=== PATIENT | male | born 1985 | race Caucasian/White ===

== ENCOUNTER 2018-11-16 12:37 | Emergency (ER) | payer OTHER ==
[~2018-11-16] VITALS: Ht 172.7 cm; Wt 113.6 kg
[~2018-11-16 12:37] MED LIST: EAR DROPS
[2018-11-16] MEDS ORDERED: KETOROLAC TROMETHAMINE 60 MG/2 ML VIAL IM ONE (14:45)
[2018-11-16] MEDS ORDERED: METHOCARBAMOL 500 MG TABLET PO ONE (14:45)
[2018-11-16 16:07] VITALS: BP 125/86
== END 2018-11-16 16:07 | disposition home or self-care (01) ==
LOC: EMS 12:40
DX: S33.5XXA Sprain of ligaments of lumbar spine, initial encounter (principal); Z88.0 Allergy status to penicillin; X50.9XXA Other and unspecified overexertion or strenuous movements or postures, initial encounter; Y93.89 Activity, other specified; Y92.89 Other specified places as the place of occurrence of the external cause; Y99.8 Other external cause status
CPT/HCPCS: 96372; 99283; J1885

== ENCOUNTER 2019-02-22 17:56 | Emergency (ER) | payer OTHER ==
[~2019-02-22] VITALS: Ht 175.3 cm; Wt 115.9 kg
[2019-02-22 19:31] VITALS: BP 140/76
== END 2019-02-22 20:09 | disposition home or self-care (01) ==
LOC: EMS 17:57
DX: B86 Scabies (principal); R03.0 Elevated blood-pressure reading, without diagnosis of hypertension

== ENCOUNTER 2023-03-03 11:31 | Emergency (ER) | payer OTHER ==
[~2023-03-03] VITALS: Ht 175.3 cm; Wt 113.6 kg
[2023-03-03 11:34] VITALS: BP 137/93; PULSE 58; RESP 16; TEMP 98.4
== END 2023-03-03 12:21 | disposition left against medical advice (07) ==
LOC: EMS 11:33
DX: M25.562 Pain in left knee (principal); Z53.21 Procedure and treatment not carried out due to patient leaving prior to being seen by health care provider
CPT/HCPCS: 99281; Z7502

== ENCOUNTER 2024-01-03 13:09 | Emergency (ER) | payer OTHER ==
[~2024-01-03] VITALS: Ht 175.3 cm; Wt 113.6 kg
[2024-01-03 13:15] VITALS: TEMP 98.3
[2024-01-03 15:00] VITALS: BP 140/75; PULSE 70; RESP 16
[2024-01-03] MEDS: IBUPROFEN 600 MG TABLET PO ONE (15:41)
[2024-01-03] MEDS ORDERED: HYDR-4062 PO (16:25)
[2024-01-03] MEDS ORDERED: IBUP-1554 PO (16:25)
== END 2024-01-03 16:44 | disposition home or self-care (01) ==
LOC: EMS 13:09
DX: S83.92XA Sprain of unspecified site of left knee, initial encounter (principal); W21.02XA Struck by soccer ball, initial encounter; Y93.66 Activity, soccer; Y92.89 Other specified places as the place of occurrence of the external cause; Y99.8 Other external cause status
CPT/HCPCS: 99283